=== PATIENT | female | born 1930 | race African-American/Black ===

== ENCOUNTER 2020-04-23 20:25 | Inpatient (IN) | payer OTHER, MEDICARE ==
[~2020-04-23] VITALS: Ht 160 cm; Wt 76.3 kg
--- NOTE | ~2020-04-23 | HC ---
[facility] [place] [address] CONSULTATION Name: HARJEET MEDINA Room #: 358- ADM IN M.R.#: [id number] Admission: 04/23/20 Attend Phys: Ángela Rueda MD Discharge: Date of : [birth year] Report #: [id number] THIS REPORT FOR: cc: Bashir Rosen,Favian Tyler DO ~ CC: Ángela Rosen DATE OF SERVICE: 04/26/2020 PALLIATIVE CARE CONSULTATION REQUESTING PHYSICIAN: Dr. Rueda. CHIEF COMPLAINT: SARS-CoV-2 and possible aspiration pneumonia on top. HISTORY OF PRESENT ILLNESS: The patient is an 89-year-old female who presented with a history of dementia, hypertension and CKD 3, from [facility]. She had weakness, dehydration, was suspected to have healthcare-associated pneumonia. She had a previous diagnosis of SARS-CoV-2. This was diagnosed approximately 2 weeks ago. She has been started on vancomycin, cefepime and Flagyl. Unfortunately, the patient has had severe delirium and possibly this is significantly related to preexisting dementia. Has been refusing to take food or water over the last few days. We have not been able to obtain significant answers from the patient herself. I have attempted to contact next of kin, brother for discussion with regards to preexisting condition. Unfortunately, the number provided does not appear to be the number of this said brother. I am attempting to reach out to [facility] for more information. PAST MEDICAL HISTORY: Significant for dementia, anemia, hyperlipidemia, depression, CKD 3. ALLERGIES: No known drug allergies. FAMILY HISTORY: Unable to obtain from the patient herself and do not have her records. PAST SURGICAL HISTORY: Again, as per above, unable to obtain at this time. SOCIAL HISTORY: Lives in [facility]. Other than that, we are unable to ascertain exactly what social history she has. She does have a brother who is living per the report, unknown if he is durable power of civil litigation attorney. REVIEW OF SYSTEMS: Unable to obtain from the patient for the most part. She occasionally nods her head, it is difficult to ascertain whether this is an [facility] [address] [place] [address] CONSULTATION Name: HARJEET MEDINA Room #: 358-P ADM IN M.R.#: [id number] Admission: 04/23/20 Attend Phys: Ángela Rueda MD Discharge: Date of : [birth year] Report #: [id number] actual response to questioning and it does not appear to be associated with appropriate timing. PHYSICAL EXAMINATION: VITAL SIGNS: Temperature 36.4, pulse 73, respirations 18, blood pressure 147/80, 98% currently off nasal cannula. GENERAL: The patient again awakens to touch stimuli, but not awaken to verbal stimuli previous, although she appears to be responsive only with moans and occasional head nods. HEENT: Does not appear to have scleral icterus or conjunctival injection. CARDIOVASCULAR: Regular rate and rhythm currently without significant murmur. LUNGS: Anteriorly clear to auscultation but minor rales noted. ABDOMEN: Non-significantly distended without grimacing. LABORATORY DATA: Urinalysis obtained without nitrite, 2+ leuk esterase was noted. She was combative with farm labor contractor this morning and labs were unable to be fully obtained. Hemoglobin was 8.5; creatinine 2.9 on previous labs. ASSESSMENT AND PLAN: 1. Healthcare-associated pneumonia. At present time, could be aspiration related. Certainly, this would portend a poor prognosis given her preexisting dementia. Attempted to discuss with brother, but unable to reach at this time. Did leave a message on the phone number provided to contact us back and we will attempt to contact [facility] and see if there is any further contact information. 2. History of SARS-CoV-2. At this point in time, the patient could have significant decline related to this with additional healthcare-associated pneumonia on top of this, certainly concerning as many patients have progressed onto ultimate despite the apparent resolution of the initial viral illness. This may be the case for this patient. 3. Acute kidney injury, unknown what her preexisting baseline is; however, this portends a poor overall prognosis potentially, especially with decreased p.o. intake. 4. Anorexia. At this point in time, this is likely due to her significant medical conditions. Even with prompting, the patient is not taking p.o. intake. We will need discussion of whether PEG tube would be appropriate, although I feel that this would not be significantly beneficial in a patient that had recently possibly aspirated, especially with her level of dementia. Again, we will try to obtain information from family, although I do feel the patient is hospice appropriate and do feel the patient would benefit from a do not resuscitate given her overall medical condition. [facility] [address] [place] [address] CONSULTATION Name: HARJEET MEDINA Room #: 358-P ADM IN M.R.#: [id number] Admission: 04/23/20 Attend Phys: Ángela Rueda MD Discharge: Date of : [birth year] Report #: [id number] Thank you very much for this consultation. We will follow up with more information as it is available. By: [id number] Favian Moncada DO /corry
[2020-04-23 20:27] VITALS: BP 123/64
[2020-04-23 21:30] LABS: ICTOTEST (BILI CONFIRMATORY) Negative (Negative); URINE BILIRUBIN 1+ (Negative); URINE BLOOD TRACE (Negative); URINE CLARITY CLEAR; URINE COLOR YELLOW; URINE GLUCOSE-RANDOM* NEGATIVE (Negative); URINE KETONES TRACE (Negative); URINE LEUKOCYTES-REFLEX 2+ (Negative); URINE NITRITE-REFLEX NEGATIVE (Negative); URINE PROTEIN (DIPSTICK) TRACE (Negative); URINE SPECIFIC GRAVITY 1.025 (1.005-1.035); URINE UROBILINOGEN 0.2 E.U./dl (0.2-1.0)
[2020-04-23 21:38] LABS: BACTERIA-REFLEX >30 Many /HPF (None Seen); SQUAMOUS 0-3 Few /LPF (0-3)
[2020-04-23 21:39] LABS: CASTS None Seen /LPF (None Seen); CRYSTALS None Seen /LPF (None Seen); URINE RBC 0-2 Rare /HPF (0-2); URINE WBC-REFLEX 6-15 Few /HPF (0-5)
[2020-04-23 21:50] LABS: HEMATOCRIT 31.9 % (37.0-47.0); MCH 25.2 pg (26.0-34.0); MCHC 31.3 g/dL (28.0-37.0); MCV 80.6 fL (80.0-100.0); PLATELET COUNT 212 thou/uL (150-400); RBC 3.96 mil/uL (4.20-5.00); RDW 19.1 % (10.5-14.5); WBC 20.8 thou/uL (4.0-11.0)
[2020-04-23 21:54] LABS: CALCIUM 8.9 mg/dL (8.5-10.1); CREATININE 3.4 mg/dL (0.6-1.0); POTASSIUM 3.8 mmol/L (3.5-5.1)
[2020-04-23 22:03] LABS: ALBUMIN 2.9 g/dL (3.4-5.0); MAGNESIUM 2.4 mg/dL (1.8-2.4); TOTAL BILIRUBIN 0.3 mg/dL (0.2-1.0); TOTAL PROTEIN 7.9 g/dL (6.4-8.2); TROPONIN-I 0.06 ng/mL (<0.06)
[2020-04-23 22:09] LABS: ABSOLUTE NEUTROPHILS 18.7 thou/uL (1.4-8.2); ANISOCYTOSIS 1+; NUCLEATED RBCS 2 /100WBC
[2020-04-23 22:10] LABS: LARGE PLATELETS RARE
[2020-04-24] VITALS (7 sets, daily range): BP systolic 104–119; BP diastolic 42–68
[2020-04-24 03:39] LABS: CHOLESTEROL 191 mg/dL (<200); HDL CHOLESTEROL 45 mg/dL (>40); LDL CHOLESTEROL 106 mg/dL (<100); TC:HDL 4.2 Ratio (Not establshd); TRIGLYCERIDE 202 mg/dL (<150); VLDL 40 mg/dL (<40)
[2020-04-24 03:41] LABS: CALCIUM 7.9 mg/dL (8.5-10.1); CREATININE 2.9 mg/dL (0.6-1.0); POTASSIUM 3.4 mmol/L (3.5-5.1); TROPONIN-I 0.06 ng/mL (<0.06)
[2020-04-24 03:45] LABS: SERUM ASSESSMENT Clear
[2020-04-24 03:48] LABS: HEMATOCRIT 27.1 % (37.0-47.0); HEMOGLOBIN 8.5 gm/dL (12.0-15.0); MCH 26.4 pg (26.0-34.0); MCHC 31.6 g/dL (28.0-37.0); MCV 83.5 fL (80.0-100.0); RBC 3.24 mil/uL (4.20-5.00); RDW 19.2 % (10.5-14.5); WBC 13.5 thou/uL (4.0-11.0)
[2020-04-24] MEDS ORDERED: CLOPIDOGREL75 MG PO (03:49)
[2020-04-24] MEDS ORDERED: TYLENOL EXTRA500 MG PO (03:58)
[2020-04-24] MEDS ORDERED: SLOW FE142 MG PO (04:05)
[2020-04-24] MEDS ORDERED: IRON325 M1 PO (04:05)
[2020-04-24] MEDS ORDERED: ATORVASTATIN CA20 MG PO (04:06)
[2020-04-24] MEDS ORDERED: LISINOPRIL2.5 MG PO (04:07)
[2020-04-24] MEDS ORDERED: NIFEDIPINE ER90 MG PO (04:08)
[2020-04-24] MEDS ORDERED: LORATIDINE 10 M10 M1 PO (04:09)
[2020-04-24] MEDS ORDERED: PROAIR HFA8.5 GM INH (04:10)
--- NOTE | 2020-04-24 05:16 | NUR ---
ADMISSION NOTE: FROM ED TONIGHT AT 0400. UNABLE TO COMMUNICATE AND ANSWER QUESTIONS. SHE USES ONLY INCOMPREHENSIBLE SOUNDS AND GRUNTS. LARGE BM AT TIME OF ADMISSION. INCONTINENT URINE. SKIN BREAKDOWN TO LEFT AND RIGHT BUTTOCK. WOUND PICTURES TAKEN AND PLACED ON CHART. CAREPLAN STARTED. VALERIY COLES AT [place] [place] 2 WEEKS AGO. RULE OUT PENDING TONIGHT.
--- NOTE | 2020-04-24 10:48 | HC ---
[facility] [address] CONSULTATION Name: HARJEET MEDINA Room #: 358-P ADM IN M.R.#: [id number] Admission: 04/23/20 Attend Phys: Michael Mendez MD Discharge: Date of : [birth year] Report #: [id number] THIS REPORT FOR: cc: Bashir Rosen,Fabrizio Caballero MD ~ CC: Bashir Mendez DATE OF SERVICE: 04/24/2020 INFECTIOUS DISEASE CONSULTATION ATTENDING PHYSICIAN: Dr. Mendez. REASON FOR EVALUATION: COVID positive tests complicated by perhaps secondary bacterial infection with sepsis. HISTORY OF PRESENT ILLNESS: Chart reviewed, patient examined. This is an 89-year-old with fairly extensive medical history including dementia that left her quite disabled, who apparently was confirmed to be a positive COVID-19 infection at the shelter; however, she worsened over the day or 2 prior to her transfer to the hospital, felt to be dehydrated, eating poorly. She is unable to give any kind of a history at this point and evaluation noted borderline hypotension, somewhat hypothermic initially, found to have an elevated white blood cell count to 20,000 with elevated procalcitonin of 8.88. Lactic acid of 2.2. Urinalysis did suggest moderate pyuria. Blood and urine cultures have been collected. She was empirically started on therapy with cefepime, metronidazole, given a dose of vancomycin as well. ALLERGIES: None known. MEDICATIONS: Include vancomycin, enoxaparin, metronidazole, cefepime, acetaminophen. PAST MEDICAL HISTORY: As noted above, dementia, hypertension, depression, chronic renal insufficiency, hyperlipidemia, chronic anemia. SOCIAL HISTORY: Unknown. FAMILY HISTORY: Unknown. REVIEW OF SYSTEMS: Unobtainable. PHYSICAL EXAMINATION: GENERAL: She appears reasonably comfortable, although if you touch her, she [facility] [address] [place] [address] CONSULTATION Name: HARJEET MEDINA Room #: 358-P [facility] IN .R.#: [id number] Admission: 04/23/20 Attend Phys: Michael Mendez MD Discharge: Date of : [birth year] Report #: [id number] cries out. It is not clear if this is a response to pain. She appears chronically ill, undernourished. VITAL SIGNS: Temperature 97.5, pulse 72, respirations 24, blood pressure 104/42, saturation 97% on room air. SKIN: Warm, dry, no rashes. HEENT: Normocephalic. Extraocular muscles intact. She briefly opens her eyes. NECK: Somewhat decreased range of motion. LUNGS: Few scattered coarse breath sounds. HEART: Regular, has a soft systolic murmur. ABDOMEN: Difficult to ascertain. Seemingly, there are no peritoneal signs. GENITOURINARY AND RECTAL: Deferred. LABORATORY DATA: As noted above procalcitonin elevated at 8.88. CBC: White count of 13.5, H and H 8.5 and 27.1, platelets 174. Lactic acid now at 2.1. Electrolytes: Sodium 145, potassium 3.4, chloride 112, bicarbonate is 17, anion gap of 16, BUN and creatinine is 137 and 2.9, glucose of 94. ASSESSMENT AND PLAN: Sepsis. The patient is as confirmed COVID-19 infection. I suspect secondary bacterial infection, likely genitourinary tract infection, bladder stasis perhaps. We will continue combination antibacterial therapy at this point. We will monitor closely for the COVID-19. At this point, we will hold off any interventions, may add corticosteroids if it would worsen. Overall, prognosis appears guarded. <ELECTRONICALLY SIGNED> By: Fabrizio Cabello MD 04/24/20 1048 [id number] [id number] Fabrizio Cabello MD /nt
--- NOTE | 2020-04-24 17:07 | NUR ---
PT'S COVID IS POSITIVE FROM 04/23/20 TEST, RN HAS NOTIFIED DRS, PT IS CONTINUING REMAIN IN ENHANCED PRECAUTIONS.
--- NOTE | 2020-04-24 19:50 | NUR ---
PT OPENS HER EYES BY VOICE OR CHANGE POSITION, PT KNOWS HER NAME, AND SHE CAN FOLLOW SOME COMMANDS, PT 'S VS ARE STABLE, PT IS CONTINUING IV FLUID AND IV ABX, PT IS ISOLATION FOR POSITIVE COVID.
[2020-04-25 05:30] VITALS: BP 138/63
--- NOTE | 2020-04-25 06:32 | NUR ---
pt has inability to communicate. encouraged her to try to talk or use body language. continues on iv fluids, and antibiotics. no signs of pain. assisted with turns. careplan reviewed.
[2020-04-25 08:02] VITALS: BP 136/53
[2020-04-25 14:36] LABS: HEMOGLOBIN 8.2 gm/dL (12.0-15.0); MCH 25.5 pg (26.0-34.0); MCHC 30.4 g/dL (28.0-37.0); PLATELET COUNT 143 thou/uL (150-400); RBC 3.21 mil/uL (4.20-5.00); WBC 10.4 thou/uL (4.0-11.0)
[2020-04-25 14:38] LABS: HEMATOCRIT 26.9 % (37.0-47.0); MCV 83.9 fL (80.0-100.0); RDW 19.3 % (10.5-14.5)
[2020-04-25 14:40] LABS: CALCIUM 7.9 mg/dL (8.5-10.1); CREATININE 2.1 mg/dL (0.6-1.0); POTASSIUM 3.6 mmol/L (3.5-5.1)
[2020-04-25 15:03] LABS: ABSOLUTE NEUTROPHILS 9.3 thou/uL (1.4-8.2); ANISOCYTOSIS 1+; METAMYELOCYTES 1 %; NUCLEATED RBCS 1 /100WBC; PLATELET ESTIMATE DECREASED
[2020-04-25 15:40] VITALS: BP 128/69
--- NOTE | 2020-04-25 19:50 | NUR ---
PT IS CONFUSED, PT CAN OPEN HER EYES BY VOICE AND CHANGE POSITION, PT CAN NOT FOLLOW COMMANDS, PT IS ON ROOM AIR , PT'S VS ARE STABLE , PT IS CONTINING IV FLUID AND COVID ISOLATION .
[2020-04-25 20:20] VITALS: BP 148/78
[2020-04-26 03:31] VITALS: BP 143/62
--- NOTE | 2020-04-26 03:44 | NUR ---
PATIENT ALERT TO SELF, AWAKENS TO HER NAME, HOWEVER, NO COMMUNICATION EXCEPT TO PULL AWAY WHEN TURNING. IVF INFUSING W/O COMPLICATION. NO S/S OF PAIN. VERY SMALL BM BETWEEN BUTTOCKS, DARK GREEN SMEAR. EXTERNAL SHAH CATHETER TO WALL SUCTION WITH LIGHT MATILDE URINE. CHANGED FILTER. BARRIER CREAM APPLIED. SLEPT WELL DURING THE NIGHT. WILL MONITOR.
--- NOTE | 2020-04-26 08:02 | EKG ---
[facility] [place] [address] [place] [address] ELECTROCARDIOGRAM REPORT Name: HARJEET MEDINA Room #: 358-P ADM IN M.R.#: [id number] Admission: 04/23/20 Attend Phys: Ángela Rueda MD Discharge: Date of : [birth year] Report #: [id number] THIS REPORT FOR: cc: Bashir Rosen James D. DO Lundgren, Craig H. MD [facility] THIS REPORT FOR: //name// [facility] ED Test Date: 2020-04-23 Test Time: 20:38:59 Pat Name: HARJEET MEDINA Department: Room: [facility] Gender: F Receiving Associate: JASMINE : [id number] Requested By: Torrey Cervantes Order Number: [id number] MD: Subhash Kaplan Measurements Intervals [place] Rate: 99 P: -27 AR: 109 QRS: -7 QRSD: 108 T: 53 QT: 373 QTc: 479 Interpretive Statements Sinus rhythm Multiple premature complexes, supraven Short AR interval Inferior infarct, age indeterminate No previous ECG available for comparison Electronically Signed On 04-26-2020 8:02:28 CDT by Subhash Kaplan [email or web address] <ELECTRONICALLY SIGNED> By: Subhash Kaplan MD, FACC 04/26/20 0802 37 37 Subhash Kaplan MD, [facility] /EPI
[2020-04-26 09:00] VITALS: BP 147/60
--- NOTE | 2020-04-26 09:53 | NUR ---
WOUND CONSULT; PER COVID RESTRICTIONS WOUND CARE ASSESSES WOUNDS BY PHOTOS. THE PHOTOS OF THE BILATERAL BUTTOCK WERE CLEAR WITH NO S/S OF INFECTION SEEN. THE WOUNDS ARE SUPERFICIAL LIKLEY FRICTION. RECOMMENDATIONS; 1-ZGUARD DAILY/PRN 2-TURN Q2H DISCUSSED WITH RN. SHE STATED NO OTHER AREAS OF CONCERN. PROVIDED ZGUARD
--- NOTE | 2020-04-26 10:57 | NUR ---
Chart reviewed and case discussed with the care team. The pt is a ltc resident at [facility] since 2018. She was tested covid + two weeks ago and recently has been less responsive and poor po intake. Pt is currently in enhanced ISO with covid + test here. The pt was admitted with severe sepsis and is min responsive. She is non ambulatory at the senior care. Dog Groomer spoke with the [facility] liason and she indicates that the pt does not have a dpoa. Her next of kin emergency contact is her brother Jose Kurtz [phone]. This information was provided to the attending and the Rn caring for the pt. The attending to call and discuss prognosis and plan of care. Will follow.
--- NOTE | 2020-04-26 14:08 | NUR ---
FAXED CLINICAL UPDATE TO [facility] RECEIVED CONFIRMATION AND LEFT MSG WITH SAUL IN ADM. DP TO FOLLOW.
--- NOTE | 2020-04-26 15:28 | NUR ---
P.T. EVALUATION DEFERRED AT THIS TIME. PT IS A NON-AMBULATORY LTC RESIDENT AND NOT ABLE TO FOLLOW COMMANDS AT THIS TIME. REQUEST NEW ORDERS IF/WHEN PT MORE APPROPRIATE TO PARTICIPATE IN THERAPEUTIC ACTIVITIES.
[2020-04-26 16:00] VITALS: BP 147/80
[2020-04-26 17:00] VITALS: BP 157/63
--- NOTE | 2020-04-26 17:59 | NUR ---
PT STILL IS CONFUSED AND AGITATION AT TIME, PT 'S IV FLUID HAS CHANGED TO D5W IV AT 100ML/HR FOR ABNORMAL LAB RESULTS, PT IS CONTINING IV ABX AND ISOLATION FOR POSITIVE VALERIY RN HAS REPORTED TO HOSPITAL ABOUT PT REFUSED LAB WORK TODAY, NEW CONSULT DR MUIR FOR CARE OF GOALS.
[2020-04-26 20:05] VITALS: BP 161/47; BP 177/61
[2020-04-27 00:15] VITALS: BP 141/56
--- NOTE | 2020-04-27 04:09 | NUR ---
ASSUMED CARE PT RESTING IN BED, TURNED EVRY 2 HOURS FOAM DRESSING PLACED ON BUTTOCK WOUNDS DUE BEING FREQ SOILED WITH STOOL. NO CHANGES NOTED THROUGHOUT HOURLY ROUNDS. CENTRAL SERVICES TECH SHOWS SB WITH PVC.
[2020-04-27 05:30] VITALS: BP 151/51
[2020-04-27 11:03] LABS: HEMATOCRIT 24.5 % (37.0-47.0); HEMOGLOBIN 7.8 gm/dL (12.0-15.0); MCH 26.1 pg (26.0-34.0); MCV 81.7 fL (80.0-100.0); PLATELET COUNT 167 thou/uL (150-400); RDW 20.7 % (10.5-14.5); WBC 8.7 thou/uL (4.0-11.0)
[2020-04-27 11:31] LABS: ALBUMIN 2.3 g/dL (3.4-5.0); CREATININE 1.7 mg/dL (0.6-1.0); POTASSIUM 3.1 mmol/L (3.5-5.1); TOTAL BILIRUBIN 0.4 mg/dL (0.2-1.0); TOTAL PROTEIN 6.4 g/dL (6.4-8.2)
[2020-04-27 12:35] LABS: ABSOLUTE NEUTROPHILS 7.9 thou/uL (1.4-8.2); NUCLEATED RBCS 1 /100WBC; PLATELET ESTIMATE NORMAL
[2020-04-27 12:36] LABS: ANISOCYTOSIS 1+; BURR CELLS 2+
[2020-04-27 16:48] VITALS: BP 170/90
--- NOTE | 2020-04-27 17:10 | NUR ---
PT STILL IS SLEEPING AT MOST OF TIME, PT OPENS HER EYES BY VOICE OR CHANGE POSITION, PT IS NPO, PT IS CONTINUING IV ABX AND IV FLIUDS, PT HAS LOW POTASSIUM IV REPLACEMENT, PT'S VS ARE STABLE, RN HAS UPDATED PT'S INFORMATION TO PT'S FAMILY.PT IS TOTAL CARE.
--- NOTE | 2020-04-27 17:41 | NUR ---
RAUL reviewed chart and spoke with nursing and attending physician. Pt remains in Enhanced Isolation due to COVID-19. Palliative care physician consulted. Family has decided on pt returning to [facility] with hospice services. RAUL spoke with pt's great-niece, Chen ([phone]), to discuss returning to [place] with hospice. Pt's great-niece reports that she does not know who Jose Kurtz is, listed contact for pt. Pt is single and does not have children. Her siblings are all . Pt has many nieces and nephews who are involved in her care. Palliative care physician discussed with Chen, the goals of care and treatment plan. Pt's family are agreeable with DNR code status. Pt's nurse to call and confirm with pt's niece. RAUL discussed options for hospice providers at [facility]. No preference voiced. RAUL faxed referral to [facility], as they are providing care to COVID positive pts at [facility]. Notified [facility] in admissions. RAUL provided update to [facility] post-acute liaison. Will need a repeat COVID test within 24 hours of discharge. RAUL notified pt's nurse to follow up with pt's niece regarding code status. RAUL is following to assist as needed with discharge planning.
[2020-04-27 20:32] VITALS: BP 145/78
--- NOTE | 2020-04-28 04:23 | NUR ---
ASSUMED CARE FROM DAY SHIFT PT EYE OPEN NON-VERBAL RESPONSE NOTED, IV FLUIDS INFUSING , ORAL CARE GIVEN, PT INCONTINENT WITH LARGE AMOUNT OF BROWN SOFT STOOL. BUTTOCK CLEAN AND ZGARD APPLIED. PHYSICAL GEOGRAPHER SHOWS NSR . NO CHANGES NOTED IN HOURLY ROUNDING, WILL CONITNUE WITH PRESENT PLAN OF CARE.
[2020-04-28 05:21] VITALS: BP 167/75
[2020-04-28 06:36] LABS: CALCIUM 7.5 mg/dL (8.5-10.1); CREATININE 1.5 mg/dL (0.6-1.0); POTASSIUM 3.6 mmol/L (3.5-5.1)
[2020-04-28 07:20] VITALS: BP 141/67
--- NOTE | 2020-04-28 16:08 | NUR ---
RAUL reviewed chart and spoke with nursing and attending physician. Pt remains in Enhanced Isolation due to COVID-19. Pt to have repeat COVID test ordered today. Pt is afebrile and not on O2. Plan is for pt to discharge back to [facility] with [facility]. RAUL spoke with Bella in admissions at [facility] to confirm referral was received. RAUL provided update to [facility] post-acute liaison. RAUL faxed updates to [facility] for review. RAUL spoke with pt's great niece, Chen, to discuss discharge plan. Chen confirmed that pt's family is agreeable with pt returning to [facility] with [facility]. Hospice contacted Chen earlier today. RAUL is following to assist as needed with discharge planning.
--- NOTE | 2020-04-28 17:38 | NUR ---
ASSUMED CARE OF PT AT 0700. PT MORE ALERT. ABLE TO ANSWER VERY SIMPLE QUESTIONMS. OK'D BY SPEECH TO EAT PUREED/NECTAR. SMALL APPETITE. INCONTINENT. TURNED Q2H AND PRN. ZGUARD APPLIED TO BACKSIDE. RESWABBED FOR COVID FOR DISCHARGE PLANNING. VITALS STABLE. WILL CONT TO MONITOR.
[2020-04-28 19:45] VITALS: BP 141/65
--- NOTE | 2020-04-29 03:04 | NUR ---
PT MORE ALERT THIS EVENING, PULL IV OUT OF RIGHT HAND , TOLERATING PO THICKEND FLUIDS WELL. TURNED EVERY 2 HOURS , RESTING WELL THROUGHOUT HOURLY ROUNDS. PRESS HELPER SHOWS NSR WITH PVC AND SR-ARR.
[2020-04-29 05:20] VITALS: BP 138/65
[2020-04-29 08:32] VITALS: BP 146/55
--- NOTE | 2020-04-29 11:21 | NUR ---
SW reviewed chart and spoke with nursing and attending physician. Pt is stable for discharge back to [facility] with [facility] today. SW contacted [facility] post-acute liaison, who states they are able to accept pt back today. Awaiting final discharge orders/summary at this time. Pt will need ambulance transportation. Chart copy requested. RAUL is following to assist as needed with discharge planning.
--- NOTE | 2020-04-29 12:58 | NUR ---
Nutrition: Pt was being followed for nutrition plan of care. Per latest EMR updates, pt is allowed a pureed diet and honey thick liquids, but exhibiting small appetite. Is now Hospice and returning back to facility w/ Hospice cares. Per notes, facility able to accept pt back today. Given goals of care, no further nutrition interventions indicated at this time for end of life.
--- NOTE | 2020-04-29 13:48 | NUR ---
ASSUMED PATIENT CARE AT 0700. OPEN EYE. REFUSED TO EAT. COVID TEST POSITIVE. WILL DC TO SNF WITH HOSPICE AT 1500.
== END 2020-04-29 14:16 | disposition hospice, inpatient (51) | DRG 871 ==
LOC: ER 20:25 → 3W 22:46 → EROBS 22:46 → 3W 04-24 03:16
PROVIDERS: Emergency Medicine; Hospitalist; Nurse Practitioner Family; ADMIT Hospitalist; ATTEND Hospitalist
DX: A41.9 Sepsis, unspecified organism (principal); U07.1 COVID-19; J12.89 Other viral pneumonia; J96.01 Acute respiratory failure with hypoxia; N17.9 Acute kidney failure, unspecified; N39.0 Urinary tract infection, site not specified; E87.0 Hyperosmolality and hypernatremia; N18.3 Chronic kidney disease, stage 3 (moderate); F32.9 Major depressive disorder, single episode, unspecified; R65.20 Severe sepsis without septic shock; D64.9 Anemia, unspecified; I12.9 Hypertensive chronic kidney disease with stage 1 through stage 4 chronic kidney disease, or unspecified chronic kidney disease; E78.5 Hyperlipidemia, unspecified; F03.90 Unspecified dementia, unspecified severity, without behavioral disturbance, psychotic disturbance, mood disturbance, and anxiety; E87.6 Hypokalemia; B96.20 Unspecified Escherichia coli [E. coli] as the cause of diseases classified elsewhere; E87.8 Other disorders of electrolyte and fluid balance, not elsewhere classified; Z79.899 Other long term (current) drug therapy
CPT/HCPCS: 10879